=== PATIENT | female | born 1990 | race Caucasian/White ===

== ENCOUNTER 2022-09-17 12:42 | Emergency (ER) | payer MEDICAID, OTHER ==
[~2022-09-17] VITALS: Ht 160 cm; Wt 84.0 kg
[2022-09-17] MEDS ORDERED: SODIUM CHLORIDE 0.9% 1,000 ML IV ONE (13:15)
[2022-09-17 14:26] LABS: BASOPHILS % 0.1 % (0.0-2.0); HEMATOCRIT. 38.6 % (36.0-48.0); HEMOGLOBIN. 12.5 g/dL (12.0-16.0); LYMPHOCYTES % 39.2 % (20.0-50.0); MEAN CORPUSCULAR HEMOGLOBIN 26.2 pg (28.0-32.0); MEAN CORPUSCULAR VOLUME 81.1 fL (81.0-99.0); MONOCYTES % 3.8 % (2.0-8.0); NEUTROPHILS % 53.9 % (40.0-76.0); PLATELET 276 x1000/uL (130-400); RED BLOOD CELL COUNT 4.76 mill/uL (4.2-5.4)
[2022-09-17 14:29] LABS: CHLORIDE 99 mEq/L (98-107)
[2022-09-17 14:33] LABS: PROTHROMBIN TIME 10.8 sec (9.6-11.0)
[2022-09-17 15:42] LABS: CLARITY URINE CLEAR (CLEAR); COLOR URINE YELLOW (YELLOW); KETONES URINE NEGATIVE (NEGATIVE); LEUKOCYTE ESTERASE URINE NEGATIVE (NEGATIVE); NITRITE URINE NEGATIVE (NEGATIVE); OCCULT BLOOD URINE NEGATIVE (NEGATIVE); PROTEIN URINE NEGATIVE (NEGATIVE); SPECIFIC GRAVITY URINE 1.004 (1.005-1.030); UROBILINOGEN URINE 0.2 E.U./dL (0.2-1.0)
[2022-09-17 15:42] LABS: B-HCG QUANTITATIVE 1297 mIU/mL (<3)
[2022-09-17] MEDS ORDERED: KCL 10MEQ/50ML PREMIX 50 ML IV ONE (16:00)
[2022-09-17] MEDS ORDERED: POTASSIUM CHLORIDE 20MEQ TABLET SR PO ONE (16:00)
[2022-09-17 17:49] VITALS: BP 135/90
== END 2022-09-17 18:02 | disposition home or self-care (01) ==
LOC: ER 12:42 → EDBD 12:42 → ER 18:02
DX: O26.891 Other specified pregnancy related conditions, first trimester (principal); R00.2 Palpitations; Z3A.01 Less than 8 weeks gestation of pregnancy
CPT/HCPCS: 36415; 76801; 76817; 80053; 81003; 84443; 84484; 84702; 85025; 85610; 93005; 96361; 96365; 99285; J3480; J7030

== ENCOUNTER 2022-10-03 18:09 | Emergency (ER) | payer OTHER | END 2022-10-03 19:18 | disposition left against medical advice (07) | LOC: ER 19:15 | DX: Z53.21 Procedure and treatment not carried out due to patient leaving prior to being seen by health care provider (principal) ==